=== PATIENT | female | born 1985 | race Two or more races ===

== ENCOUNTER 2018-07-31 05:10 | Day surgery (SDC) | payer OTHER | END 2018-07-31 13:45 | disposition home or self-care (01) | LOC: CIR.AMB 05:10 | DX: Z30.2 Encounter for sterilization (principal); Z30.432 Encounter for removal of intrauterine contraceptive device ==

== ENCOUNTER 2018-09-05 12:03 | Inpatient (IN) | payer OTHER ==
[~2018-09-05] VITALS: Ht 152.4 cm; Wt 57.6 kg
== END 2018-09-08 09:55 | DRG 916 ==
LOC: OB/GYN 12:03
PROVIDERS: ADMIT Obstetrics & Gynecology
PROC: BW20ZZZ Computerized Tomography (CT Scan) of Abdomen (ICD-10-PCS; principal; 2018-09-06)
DX: T78.49XA Other allergy, initial encounter (principal); L29.8 Other pruritus; Z91.14 Patient's other noncompliance with medication regimen